=== PATIENT | female | born 1950 | race Two or more races ===

== ENCOUNTER 2020-07-20 16:16 | Outpatient (CLI) | payer OTHER | END 2020-07-20 17:31 | disposition home or self-care (01) | LOC: OFIC 805 16:16 | PROVIDERS: ATTEND Otolaryngology Otology & Neurotology | DX: M54.2 Cervicalgia (principal); H92.03 Otalgia, bilateral; H90.3 Sensorineural hearing loss, bilateral; H61.21 Impacted cerumen, right ear ==